=== PATIENT | male | born 1960 | race African-American/Black ===

== ENCOUNTER 2019-01-13 23:13 | Emergency (ER) | payer BC ==
[~2019-01-13] VITALS: Ht 188 cm; Wt 121.4 kg
[2019-01-13 23:17] VITALS: Ht 188 cm; Wt 121.4 kg
[2019-01-13] MEDS ORDERED: TRIBENZOR 40-51 EAC1 PO (23:19)
[2019-01-13] MEDS ORDERED: NORVASC10 MG PO (23:19)
[2019-01-13] MEDS ORDERED: TOPROL XL50 MG PO (23:19)
[2019-01-13] MEDS ORDERED: LIPITOR20 MG PO (23:19)
[2019-01-14] MEDS ORDERED: PREDNISONE50 MG PO (00:24)
[2019-01-14] MEDS ORDERED: EPIPEN 2-P0.3 MG/0.3 IM (00:25)
[2019-01-14 01:08] VITALS: BP 135/88
== END 2019-01-14 01:08 | disposition home or self-care (01) ==
LOC: D.ER 23:13
DX: L50.9 Urticaria, unspecified (principal); I10 Essential (primary) hypertension; E78.5 Hyperlipidemia, unspecified